=== PATIENT | female | born 1930 | race Caucasian/White ===

== ENCOUNTER 2019-04-19 09:03 | Emergency (ER) | payer MEDICARE, MEDICAID ==
[~2019-04-19] VITALS: Ht 154.9 cm; Wt 72.6 kg
[2019-04-19 09:06] VITALS: BP 113/39
--- NOTE | 2019-04-19 09:19 | NUR ---
PATIENT WHEELCHAIR ASSISTED TO BED 3.
--- NOTE | 2019-04-19 09:45 | NUR ---
88F REFERRED FROM CLINIC FOR LOW HGB (UNKNOWN VALUE). BIB DAUGHTER C/O DECREASED APPETITE, GENERALIZED WEAKNESS . PT HAS DX : SHINGLES 2 WEEKS AGO. NOT ON BLOOD THINNERS. LUNGS CTAB. RRR. MANUEL FEET PITTING EDEMA. VSS AT THIS TIME. PT APPEARS EXHAUSTED. AOX4. MED HX: HTN, ANEMIA, GALL BLADDER REMOVAL
[2019-04-19] MEDS ORDERED: AMLO1TAB33 PO (09:56)
[2019-04-19] MEDS ORDERED: ACET-62 PO (09:57)
[2019-04-19] MEDS ORDERED: ZONI100C5 PO (10:01)
--- NOTE | 2019-04-19 10:01 | NUR ---
XRAY AT BEDSIDE.
[2019-04-19 10:09] LABS: BASOPHILS % (AUTO) 0.9 % (0.0-2.0); EOSINOPHILS # (AUTO) 0.2 K/uL (0-0.4); EOSINOPHILS % (AUTO) 3.8 % (0.0-4.0); HEMATOCRIT 22.8 % (36-48); HEMOGLOBIN 7.5 g/dL (12.0-16.0); LYMPHOCYTES # (AUTO) 1.8 K/uL (2.5-16.5); LYMPHOCYTES % (AUTO) 36.3 % (20.5-51.1); MEAN CORPUSCULAR HEMOGLOBIN 32 pg (27-31); MEAN CORPUSCULAR HGB CONC 33 g/dL (33-37); MEAN CORPUSCULAR VOLUME 96.5 fL (80-94); MONOCYTES # (AUTO) 0.3 K/uL (0.8-1.0); MONOCYTES % (AUTO) 6.2 % (1.7-9.3); NEUTROPHILS # (AUTO) 2.6 K/uL (1.8-7.7); NEUTROPHILS % (AUTO) 52.8 % (42.2-75.2); PLATELET COUNT (AUTO) 349 K/uL (140-450); RED BLOOD CELL COUNT(AUTO) 2.36 MIL/uL (4.20-5.40); RED CELL DISTRIBUTION WIDTH 20.9 % (11.6-13.7)
--- NOTE | 2019-04-19 10:44 | NUR ---
NOTIFIED DR. CALHOUN OF BP 109/31, MAP OF 57.
[2019-04-19] MEDS ORDERED: NACL 0.9% 1,000 ML IV ONE (10:45)
[2019-04-19 11:15] LABS: ANION GAP 18.2 (8-16); ASPARTATE AMINOTRANSFERASE 21 U/L (15-37); CARBON DIOXIDE 15.9 mmol/L (21-32); CHLORIDE 110 mmol/L (98-107); CREATININE 1.5 mg/dL (0.6-1.3); GLUCOSE 108 mg/dL (74-106); POTASSIUM 5.1 mmol/L (3.5-5.1); SODIUM SERUM 139 mmol/L (136-145); TOTAL BILIRUBIN 0.6 mg/dL (0.0-1.0); UREA NITROGEN, BLOOD 44 mg/dL (7-18)
[2019-04-19 11:16] LABS: ALBUMIN 2.9 g/dL (3.4-5.0)
--- NOTE | 2019-04-19 11:20 | NUR ---
CALLED [phone], NO PICKUP ON FIRST TRY. ON SECOND TRY, COLLECTION OFFICER OF [facility] STATES TO CALL BACK IN 25 MINUTES, THE NURSE IS "PROBABLY ON LUNCH".
--- NOTE | 2019-04-19 11:42 | NUR ---
CALLED [phone], [employer] TECHNICIAN NICHOLAS TRANSFERRED ME TO THE UNIT WHICH GAVE ME AUTOMATED MESSAGE "THE VOICE MAIL BOX IS FULL". WAS TRANSFERRED BACK TO [employer] TECHNICIAN WHO STATES IN THAT CASE NO ONE AVAILABLE TO TAKE REPORT AT THIS TIME. GAVE NICHOLAS THE CALLBACK NUMBER TO [facility], ASKED FOR HER TO ARRANGE FOR NURSE TO CALL ME BACK FOR REPORT.
--- NOTE | 2019-04-19 12:33 | NUR ---
REPORT GIVEN TO RANDY MEANS AT [facility].
--- NOTE | 2019-04-19 13:27 | NUR ---
Patient to be transferred to [facility]. Is being transferred due to CONTINUATION OF CARE. Receiving facility has accepting physician and available space. ER physician has signed transfer form. Patient or responsible republican has agreed to transfer and signed form. Patient belongings inventoried and will be sent with patient. Copy of nursing notes, lab reports, EKG, Physicians Orders and X-rays to be sent with patient. Report called to RANDY at receiving facility. [facility] ambulance service has been called for transfer, THEY ARE IN ER AT THIS TIME TO TAKE PT.
[2019-04-19 13:28] VITALS: BP 121/50
== END 2019-04-19 13:27 | disposition short-term general hospital (02) ==
LOC: MED 09:03
DX: D64.9 Anemia, unspecified (principal); R63.0 Anorexia; I10 Essential (primary) hypertension; Z90.49 Acquired absence of other specified parts of digestive tract; Z85.3 Personal history of malignant neoplasm of breast; Z79.899 Other long term (current) drug therapy
CPT/HCPCS: 36415; 71045; 80053; 81002; 84484; 85025; 85610; 85730; 86886; 86900; 86901; 93005; 99285; J7030; Q0092